=== PATIENT | male | born 1970 | race Two or more races ===

== ENCOUNTER 2024-04-05 10:01 | Inpatient (IN) | payer SELFPAY ==
[~2024-04-05] VITALS: Ht 167.6 cm; Wt 88.1 kg
[2024-04-05 11:10] LABS: Urine Bacteria None Seen /hpf (None Seen)
[2024-04-05 11:18] LABS: Urine Blood Negative /uL (Negative); Urine Clarity Clear (Clear); Urine Color Light-Yellow (Yellow); Urine Protein, UAD Negative (Negative); Urine Specific Gravity 1.011 (1.001-1.035); Urine Urobilinogen Normal (Negative); Urine WBC 1 /hpf (0 - 3); Urine pH 5.5 (5.0-9.0)
[2024-04-05] MEDS: ACETAMINOPHEN 325 MG TAB PO ONE (11:25)
[2024-04-05 11:34] LABS: Basophils # (auto) 0 10 ^3/uL (0-0.2); Basophils % (auto) 0.5 % (0.0-2.0); Eosinophils # (auto) 0.5 10 ^3/uL (0-0.8); Eosinophils % (auto) 9.8 % (0.0-7.0); Hematocrit 34.3 % (41.0-53.0); Hemoglobin 11.5 g/dL (13.5-17.5); Lymphocytes # (auto) 1.5 10 ^3/uL (0.4-5.4); Lymphocytes % (auto) 31.6 % (10.0-50.0); Mean Corpuscular Hemoglobin 28.5 pg (28.0-32.0); Mean Corpuscular Hgb Conc. 33.7 g/dL (32.0-36.0); Mean Corpuscular Volume 84.8 fL (80.0-100.0); Monocytes # (auto) 0.4 10 ^3/uL (0-1.3); Monocytes % (auto) 7.3 % (0.0-12.0); Neutrophils # (auto) 2.4 10 ^3/uL (1.6-8.6); Neutrophils % (auto) 50.8 % (37.0-80.0); Nucleated Red Blood Cells % 0.1 %; Red Blood Cells 4.04 10^6/uL (4.5-5.90); Red Cell Distribution Width 14.4 % (11.8-14.3); White Blood Cell 4.8 10^3/uL (4.4-10.8)
[2024-04-05 11:43] LABS: Amphetamine Screen, Urine Neg (NEGATIVE); Barbiturate Scree,Urine Neg (NEGATIVE); Benzodiazephine Screen, Urine Neg (NEGATIVE); Cannabinoid Screen, Urine Neg (NEGATIVE); Cocaine Screen, Urine Neg (NEGATIVE); Opiate Scree,Urine Neg (NEGATIVE); Phencyclidine Screen, Urine Neg (NEGATIVE)
[2024-04-05 11:49] LABS: INR 1.01 (0.9-1.15); Prothrombin Time 10.7 sec (9.3-11.8)
[2024-04-05 11:50] LABS: Alanine Aminotransferase 25 U/L (7-40); Alkaline Phosphatase 94 U/L (46-116); Anion Gap 5 (5-15); Aspartate Aminotransferase 21 U/L (13-40); Blood Alcohol < 3.0 mg/dL (<10); Blood Urea Nitrogen 23 mg/dL (9-23); Calcium 9.8 mg/dL (8.5-10.1); Carbon Dioxide 25 mmol/L (20-30); Chloride 108 mmol/L (98-107); Glucose 111 mg/dL (74-106); Magnesium 1.6 mg/dL (1.6-2.6); Potassium 4.2 mmol/L (3.5-5.1); Sodium 138 mmol/L (136-145)
[2024-04-05 11:51] LABS: Albumin 4.3 g/dL (3.2-4.8); Bilirubin, Total 0.6 mg/dL (0.2-1.0); Total Protein 7.4 g/dL (5.7-8.2)
[2024-04-05 12:05] LABS: Lipase 29 U/L (12-53)
[2024-04-05] MEDS: IOHEXOL 350 MG/ML 100ML IJ ONE (13:19)
[2024-04-05 13:26] VITALS: PULSE 98; RESP 16; O2SAT 100
[2024-04-05] MEDS ORDERED: hydrALAZINE HCL 20 MG/ML VL IV PRN (18:00)
[2024-04-05] MEDS ORDERED: MORPHINE SULFATE INJ 2 MG/ml SYRG IV PRN (18:00)
[2024-04-05] MEDS ORDERED: DOCUSATE SOD 100 MG CAP PO PRN (18:00)
[2024-04-05] MEDS ORDERED: NITROGLYCERIN 0.4 MG SL TAB SL PRN (18:00)
[2024-04-05] MEDS ORDERED: ACETAMINOPHEN 325 MG TAB PO PRN (18:00)
[2024-04-05] MEDS ORDERED: ONDANSETRON HCL 4 MG/2 ML VIAL IV PRN (18:00)
[2024-04-05] MEDS ORDERED: IPRATROPIUM BROM 0.5 MG/2.5ML INH SOL NEB PRN (18:15)
[2024-04-05] MEDS ORDERED: CYCLOBENZAPRINE HCL 10 MG TAB PO PRN (18:15)
[2024-04-05] MEDS ORDERED: ALBUTEROL SULF 2.5 MG/0.5ML(0.5%) NEB SOLN NEB PRN (18:15)
[2024-04-05 19:57] VITALS: BP 145/78; PULSE 62; RESP 16; TEMP 98.9; O2SAT 96
[2024-04-05 20:00] VITALS: O2SAT 96
[2024-04-06] VITALS (11 sets, daily range): BP systolic 127–153; BP diastolic 66–84; PULSE 51–63; RESP 18–20; TEMP 97.6–98.8; O2SAT 94–98
[2024-04-06] MEDS ORDERED: BUPR8SUB18 SL (04:28)
[2024-04-06] MEDS ORDERED: MIRT-93 PO (04:28)
[2024-04-06] MEDS ORDERED: SERT-160 PO (04:28)
[2024-04-06] MEDS ORDERED: LISI40TA16 PO (04:28)
[2024-04-06] MEDS ORDERED: SOFO1TAB PO (04:28)
[2024-04-06] MEDS ORDERED: NALO4SPR2 (04:28)
[2024-04-06] MEDS ORDERED: BUPR1MIS SL (07:53)
[2024-04-06 08:01] LABS: Basophils # (auto) 0.1 10 ^3/uL (0-0.2); Basophils % (auto) 1.2 % (0.0-2.0); Eosinophils # (auto) 0.6 10 ^3/uL (0-0.8); Eosinophils % (auto) 10.1 % (0.0-7.0); Hematocrit 36.1 % (41.0-53.0); Hemoglobin 12.1 g/dL (13.5-17.5); Lymphocytes # (auto) 1.9 10 ^3/uL (0.4-5.4); Lymphocytes % (auto) 32.5 % (10.0-50.0); Mean Corpuscular Hemoglobin 28.6 pg (28.0-32.0); Mean Corpuscular Hgb Conc. 33.6 g/dL (32.0-36.0); Mean Corpuscular Volume 85.1 fL (80.0-100.0); Monocytes # (auto) 0.6 10 ^3/uL (0-1.3); Monocytes % (auto) 9.6 % (0.0-12.0); Neutrophils # (auto) 2.7 10 ^3/uL (1.6-8.6); Neutrophils % (auto) 46.6 % (37.0-80.0); Nucleated Red Blood Cells % 0.3 %; Red Blood Cells 4.24 10^6/uL (4.5-5.90); Red Cell Distribution Width 14.7 % (11.8-14.3); White Blood Cell 5.7 10^3/uL (4.4-10.8)
[2024-04-06 08:14] LABS: Alanine Aminotransferase 22 U/L (7-40); Albumin 4.1 g/dL (3.2-4.8); Alkaline Phosphatase 87 U/L (46-116); Anion Gap 6 (5-15); Aspartate Aminotransferase 25 U/L (13-40); BUN/Creatinine Ratio 19.8 (10.0-20.0); Bilirubin, Total 0.6 mg/dL (0.2-1.0); Blood Urea Nitrogen 18 mg/dL (9-23); Calcium 9.8 mg/dL (8.5-10.1); Carbon Dioxide 24 mmol/L (20-30); Chloride 108 mmol/L (98-107); Glucose 89 mg/dL (74-106); Potassium 4.1 mmol/L (3.5-5.1); Sodium 138 mmol/L (136-145); Total Protein 7.5 g/dL (5.7-8.2)
[2024-04-06] MEDS: FUROSEMIDE 20 MG/2 ML VIAL IV SCH (10:41)
[2024-04-06] MEDS: ENOXAPARIN SOD 40 MG/0.4 ML SYRINGE SC SCH (10:41)
[2024-04-06 11:26] LABS: CRP High Sensitivity 0.22 mg/dL (<1.0); Magnesium 1.9 mg/dL (1.6-2.6)
[2024-04-06] MEDS: ASPirin 81 mg TAB PO ONE (12:06)
[2024-04-06] MEDS: LORazepam 0.5 MG TAB PO PRN (13:32)
[2024-04-06] MEDS: LISINOPRIL 20 MG TAB PO ONE (13:34)
[2024-04-06] MEDS: FUROSEMIDE 20 MG/2 ML VIAL IV ONE (15:58)
[2024-04-06] MEDS: MIRTAZAPINE 30 MG TAB PO SCH (21:30)
[2024-04-07 04:39] VITALS: BP 131/58; PULSE 54; RESP 18; TEMP 97.8; O2SAT 96
[2024-04-07 06:04] LABS: Basophils # (auto) 0.1 10 ^3/uL (0-0.2); Basophils % (auto) 1.4 % (0.0-2.0); Eosinophils # (auto) 0.5 10 ^3/uL (0-0.8); Eosinophils % (auto) 10.3 % (0.0-7.0); Hemoglobin 11.5 g/dL (13.5-17.5); Lymphocytes # (auto) 1.7 10 ^3/uL (0.4-5.4); Lymphocytes % (auto) 36.1 % (10.0-50.0); Mean Corpuscular Hemoglobin 28.7 pg (28.0-32.0); Mean Corpuscular Hgb Conc. 33.7 g/dL (32.0-36.0); Mean Corpuscular Volume 85.1 fL (80.0-100.0); Monocytes # (auto) 0.5 10 ^3/uL (0-1.3); Monocytes % (auto) 10.4 % (0.0-12.0); Neutrophils % (auto) 41.8 % (37.0-80.0); Nucleated Red Blood Cells % 0.1 %; Red Cell Distribution Width 14.6 % (11.8-14.3); White Blood Cell 4.7 10^3/uL (4.4-10.8)
[2024-04-07 06:18] LABS: Alanine Aminotransferase 20 U/L (7-40); Albumin 3.8 g/dL (3.2-4.8); Alkaline Phosphatase 87 U/L (46-116); Anion Gap 7 (5-15); Aspartate Aminotransferase 20 U/L (13-40); BUN/Creatinine Ratio 30.3 (10.0-20.0); Calcium 9.8 mg/dL (8.7-10.4); Carbon Dioxide 27 mmol/L (20-30); Chloride 105 mmol/L (98-107); Glucose 94 mg/dL (74-106); Magnesium 1.9 mg/dL (1.6-2.6); Potassium 3.6 mmol/L (3.5-5.1); Sodium 139 mmol/L (136-145)
[2024-04-07 06:19] LABS: Bilirubin, Total 0.5 mg/dL (0.2-1.0); Total Protein 7.2 g/dL (5.7-8.2)
[2024-04-07 06:25] LABS: Blood Urea Nitrogen 33 mg/dL (9-23)
[2024-04-07] MEDS: POTASSIUM CHL 20 Meq TABLET PO ONE (07:00)
[2024-04-07 08:00] VITALS: PULSE 48; PULSE 60; PULSE 64; RESP 18; O2SAT 98
[2024-04-07 09:13] VITALS: BP 155/59; PULSE 51; RESP 18; TEMP 97.8; O2SAT 100
[2024-04-07] MEDS ORDERED: ASPI-325 PO (09:46)
[2024-04-07] MEDS ORDERED: CYCL-611 PO (09:46)
[2024-04-07] MEDS ORDERED: FUROSEMIDE 40 MG/4 ML VIAL IV SCH (10:00)
[2024-04-07] MEDS: SERTRALINE HCL 50 MG TAB PO SCH (10:46)
[2024-04-07] MEDS: LACTULOSE 20Gm/30ML SOLN PO ONE (10:46)
[2024-04-07] MEDS: ASPirin 81 mg TAB PO SCH (10:46)
[2024-04-07] MEDS: LISINOPRIL 20 MG TAB PO SCH (10:48)
[2024-04-07] MEDS ORDERED: FURO1TAB33 PO (11:42)
[2024-04-07] MEDS ORDERED: DOCU-94 PO (11:42)
[2024-04-07] MEDS ORDERED: POLY335015 PO (11:42)
[2024-04-07] MEDS ORDERED: POTA-36 PO (11:42)
[2024-04-07 13:01] VITALS: BP 152/108; PULSE 61; RESP 18; TEMP 98; O2SAT 94
[2024-04-08 08:06] LABS: PSA Free 0.13 ng/mL; Prostate Specific Antigen 0.4 ng/mL (0.0-4.0)
[2024-04-08 08:53] LABS: Hepatitis B Surface Antigen Negative (Negative)
[2024-04-08 09:12] LABS: Hepatitis A Ab IgM Negative
[2024-04-08 09:14] LABS: Hepatitis B Core IgM Negative
[2024-04-08 09:32] LABS: Hepatitis C Antibody Reactive (Negative)
== END 2024-04-07 14:55 | disposition home or self-care (01) | DRG 291 ==
LOC: ER 10:01 → TELE 18:00 → TELE-WESTW 23:42
PROVIDERS: ADMIT Internal Medicine; ATTEND Internal Medicine
DX: I11.0 Hypertensive heart disease with heart failure (principal); I50.31 Acute diastolic (congestive) heart failure; J96.01 Acute respiratory failure with hypoxia; E66.9 Obesity, unspecified; F17.210 Nicotine dependence, cigarettes, uncomplicated; M47.892 Other spondylosis, cervical region; F41.9 Anxiety disorder, unspecified; Z68.31 Body mass index [BMI] 31.0-31.9, adult; Z79.899 Other long term (current) drug therapy
CPT/HCPCS: 36415; 71045; 71275; 72040; 74176; 80053; 80061; 80074; 80307; 80320; 81001; 83605; 83690; 83735; 83880; 84154; 84443; 84484; 85025; 85610; 85730; 86141; 86703; 87081; 93005; 93306; 93970; 97163; G0378